=== PATIENT | male | born 1995 | race Two or more races ===

== ENCOUNTER 2018-10-17 12:53 | Outpatient (CLI) | payer BC ==
[2018-10-17] MEDS ORDERED: None at this Time (16:22)
== END 2018-10-17 23:59 | disposition home or self-care (01) ==
LOC: STAR 12:53
PROVIDERS: ATTEND Orthopaedic Surgery
DX: Z02.9 Encounter for administrative examinations, unspecified (principal)

== ENCOUNTER 2018-10-24 11:59 | Day surgery (SDC) | payer BC ==
[~2018-10-24] VITALS: Ht 160 cm; Wt 58.9 kg
[~2018-10-24 11:59] MED LIST: BUPIVACAINE/PF-EPI 0.5% 1:200K ONE; None at this Time
[2018-10-24] MEDS ORDERED: FENTANYL PF 250 MCG/5ML ONE (12:47)
[2018-10-24] MEDS ORDERED: MIDAZOLAM 1 MG/ML, 2ML ONE (12:47)
[2018-10-24 12:59] VITALS: BP 123/77
[2018-10-24] MEDS ORDERED: LACTATED RINGERS 1,000 ML IV SCH (13:01)
[2018-10-24] MEDS ORDERED: CEFAZOLIN 1,000 MG ONE (13:57)
[2018-10-24] MEDS ORDERED: PROPOFOL 10 MG/ML, 20ML ONE (13:57)
[2018-10-24] MEDS ORDERED: PROMETHAZINE 25 MG/ML, 1ML IV PRN (14:00)
[2018-10-24] MEDS ORDERED: LABETALOL 5MG/ML, 20ML IV PRN (14:00)
[2018-10-24] MEDS ORDERED: OXYcodone 5 MG/5 ML ORAL.SOL UDC PO PRN (14:00)
[2018-10-24] MEDS ORDERED: HYDROmorphone 2 MG/ML, 1ML IVPush PRN (14:00)
[2018-10-24] MEDS ORDERED: PROMETHAZINE 12.5 MG SUPP PR PRN (14:00)
[2018-10-24] MEDS ORDERED: MEPERIDINE/PF 25MG/0.5ML IVPush PRN (14:00)
[2018-10-24] MEDS ORDERED: MORPHINE SULFATE 4 MG/ML, 1ML IVPush PRN (14:00)
[2018-10-24] MEDS ORDERED: hydrALAzine 20 MG/ML, 1ML IV PRN (14:00)
[2018-10-24] MEDS ORDERED: PROMETHAZINE 25 MG/ML, 1ML IM PRN ×2 (14:00)
[2018-10-24] MEDS ORDERED: FENTANYL PF 100 MCG/2ML IV PRN (14:00)
[2018-10-24] MEDS ORDERED: ONDANSETRON ODT 8 MG PO PRN (14:00)
[2018-10-24] MEDS ORDERED: ONDANSETRON 2MG/ML, 2ML IV PRN (14:00)
[2018-10-24] MEDS ORDERED: PROMETHAZINE 25 MG SUPP PR PRN (14:00)
[2018-10-24] MEDS ORDERED: MEPERIDINE/PF 25MG/ML,1ML ONE (14:35)
[2018-10-24] MEDS ORDERED: OXYcodone 5 MG/5 ML ORAL.SOL UDC ONE (14:50)
== END 2018-10-24 17:05 | disposition home or self-care (01) ==
LOC: OUT 11:59
PROVIDERS: ATTEND Orthopaedic Surgery
DX: D16.22 Benign neoplasm of long bones of left lower limb (principal)
CPT/HCPCS: 27355; 88305; 88311; J0690; J2175; J2250; J2704; J3010; J7120